=== PATIENT | male | born 1935 | race Caucasian/White ===

== ENCOUNTER → 2018-06-08 | Day surgery (SDC) | payer MEDICARE ==
[2018-06-07 14:59] VITALS: BMI 28.0
[~2018-06-08] MED LIST: Fentanyl 100 MCG/2 ML VIAL ONE; Heparin 10,000 UNITS/1 ML VIAL ONE; Isoproterenol 0.2 MG/1 ML AMP ONE; Midazolam HCl 2 mg/2 ml Vial ONE; PROPOFOL 20 ML ONE; PROPOFOL 200 MG/20 ML VIAL ONE
[2018-06-08 11:16] LABS: #Eosinphils 0.1 thou/uL (0.0-0.7); #Lymphocytes 1.4 thou/uL (1.20-3.40); #Monocytes 0.5 thou/uL (0.11-0.59); #Neutrophils 3.9 thou/uL (1.40-6.50); %Basophils 0.4 % (0.0-1.0); %Eosinophils 1.6 % (0.0-10.0); %Lymphocytes 23.2 % (21.0-51.0); %Monocytes 8.7 % (0.0-10.0); Hemoglobin 16.4 g/dL (14.0-18.0); Mean Corpuscular HGB CONC 33.9 g/dL (32.0-36.0); Mean Corpuscular Hemoglobin 33.1 pg (27.0-31.0); Mean Corpuscular Volume 97.5 fL (78.0-98.0); Mean Platelet Volume 8.9 fL (7.4-10.4); Platelet Count 165 thou/uL (130-400); RBC Distribution Width 12.5 % (11.5-14.5); Red Blood Cell (RBC) Count 4.95 mill/uL (4.70-6.10); White Blood Cell (WBC) Count 5.9 thou/uL (4.8-10.8)
[2018-06-08 11:27] LABS: INR-International Normal Ratio 1.1; PTT 23.5 SEC (22.9-36.1); Prothrombin Time 13.8 SEC (12.0-14.7)
[2018-06-08 11:38] LABS: Anion Gap 17 mmol/L (10-20); BUN (Urea Nitrogen) 14 mg/dL (8.4-25.7); Calc. Creatinine Clearance 59 mL/min (70-130); Calcium 9.8 mg/dL (7.8-10.44); Carbon Dioxide 20 mmol/L (23-31); Chloride 103 mmol/L (98-107); Estimated GFR-MDRD 55; Glucose 118 mg/dL (83-110); Potassium 4.1 mmol/L (3.5-5.1); Sodium 136 mmol/L (136-145)
--- NOTE | 2018-06-08 18:46 | OP ---
DATE OF PROCEDURE: 06/08/2018 ELECTROPHYSIOLOGY STUDY AND RADIOFREQUENCY ABLATION REPORT REFERRING PHYSICIAN: Dr. Mindy Shaffer. REASON FOR PROCEDURE: Mr. Luevano is an 83-year-old gentleman with history of supraventricular tachycardias up to 180 beats per minute documented on monitor on 03/24/2018, normal LVEF and negative stress test recently. He is here for EP study and possible ablation of SVT. DESCRIPTION OF PROCEDURE: The patient received propofol by Anesthesia specialist. After adequate level of sedation achieved, the left and right femoral venous area was prepped, draped, and anesthetized using subcutaneous lidocaine and both femoral veins were accessed with the ultrasound guidance. In the left, a 6 and 8-Colombian short sheath was introduced through which a decapolar and then octapolar catheter was advanced to the right ventricular, right atrium, His bundle, and CS position. Pacing, mapping and recording were performed in each location with the following findings. The baseline measurements in sinus rhythm are 723 milliseconds, MD 138 milliseconds, QRS 78 milliseconds, QT 375 milliseconds, AH 73 milliseconds, and HV 50 milliseconds. Sinus node recovery time was 755 milliseconds with corrected recovery time was about 30 milliseconds. AV Wenckebach cycle length was 370 milliseconds. Retrograde Wenckebach cycle length was 300 milliseconds. Concentric retrograde VA conduction was seen with prior history of pacing demonstrating no evidence of accessory pathway. The atrial access to my testing was performed demonstrating AV sara ERP at 600/360 milliseconds. Dual AV sara physiology was present. Burst atrial pacing was able to induce a narrow complex supraventricular tachycardia with very short RP interval suggestive of AV node reentry tachycardia measured to 375 milliseconds. 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 It was nonsustained though and maneuvers were not performed due to the typical appearance of the tachycardia as well as dual AV sara physiology. Decision was made to perform slow pathway modification. The right femoral vein was accessed in similar fashion to the left. Through an 8-Colombian sheath, a regular 4-mm ablation catheter was introduced into the right atrium, superior vena cava, inferior vena cava, His bundle, and CS position were delineated. In the slow pathway area, total of 10 ablation lesion was delivered at total duration of 4 minutes and 37 seconds. Especially during last burn, prolonged periods of junctional beats were noted. No true AV block was demonstrated throughout the ablation. Following the ablation, we achieved no major change in the AV Wenckebach cycle about 350 milliseconds with excess stimulation testing. The AV sara ERP was at 600/360 milliseconds, but no more slow pathway was demonstrated. Burst atrial pacing did not reinduce arrhythmia. These maneuvers were repeated on Isuprel administration, and no recurrent AVNRT or other atrial arrhythmias were seen. CONCLUSION: 1. Inducible typical AV sara reentry tachycardia. 2. Slow pathway ablation as needed inducibility of AV sara ERP tachycardia and evidence of slow pathway was also eliminated. 3. Normal sinus and AV sara function and His-Purkinje function seen. At the end of the case, cardiac silhouette did not change on fluoroscopy. No complications noted. PLAN: Routine followup. Job ID: [id number]
--- NOTE | 2018-06-08 21:38 | EKG ---
Test Reason : PREOP Blood Pressure : / mmHG Vent. Rate : 080 BPM Atrial Rate : 080 BPM P-R Int : 130 ms QRS Dur : 088 ms QT Int : 404 ms P-R-T Axes : 052 027 025 degrees QTc Int : 465 ms Normal sinus rhythm Normal ECG No previous ECGs available Confirmed by SWETA HANSON, DR. Page ([id number]) on 06/08/2018 9:37:53 PM Referred By: [facility] Confirmed By:DR. Camilo SOL MD
--- NOTE | 2018-06-09 16:00 | EKG ---
Test Reason : Blood Pressure : / mmHG Vent. Rate : 092 BPM Atrial Rate : 092 BPM P-R Int : 138 ms QRS Dur : 086 ms QT Int : 382 ms P-R-T Axes : 054 029 011 degrees QTc Int : 472 ms Normal sinus rhythm Normal ECG When compared with ECG of 08-JUN-2018 10:56, No significant change was found Confirmed by SWETA HANSON, SPaula ([id number]) on 06/09/2018 4:00:27 PM Referred By: [facility] Confirmed By:DR. Camilo SOL MD
== END ==
LOC: CCL 10:21
PROVIDERS: ATTEND Internal Medicine Cardiovascular Disease
PROC: 02583ZZ Destruction of Conduction Mechanism, Percutaneous Approach (ICD-10-PCS; principal; 2018-06-08)
PROC: 02K83ZZ Map Conduction Mechanism, Percutaneous Approach (ICD-10-PCS; 2018-06-08)
PROC: 4A023FZ Measurement of Cardiac Rhythm, Percutaneous Approach (ICD-10-PCS; 2018-06-08)
PROC: 4A0234Z Measurement of Cardiac Electrical Activity, Percutaneous Approach (ICD-10-PCS; 2018-06-08)
DX: I47.1 Supraventricular tachycardia (principal); I25.10 Atherosclerotic heart disease of native coronary artery without angina pectoris; I10 Essential (primary) hypertension; E78.5 Hyperlipidemia, unspecified; M10.9 Gout, unspecified; M19.90 Unspecified osteoarthritis, unspecified site; G47.30 Sleep apnea, unspecified; Z87.891 Personal history of nicotine dependence; Z85.46 Personal history of malignant neoplasm of prostate; Z79.82 Long term (current) use of aspirin; Z79.899 Other long term (current) drug therapy; Z88.0 Allergy status to penicillin; Z95.5 Presence of coronary angioplasty implant and graft
CPT/HCPCS: 76942; 80048; 85025; 85610; 85730; 93005; 93010; 93613; 93623; 93653; C1730; C1769; J1644; J2250; J2704; J3010